=== PATIENT | male | born 1960 | race Caucasian/White ===

== ENCOUNTER 2020-08-17 08:56 | Outpatient (CLI) | payer BC | END 2020-08-17 08:57 | disposition home or self-care (01) | LOC: CSHWCC 08:56 | PROVIDERS: ATTEND Nurse Practitioner Family | DX: L89.153 Pressure ulcer of sacral region, stage 3 (principal); I10 Essential (primary) hypertension; G89.11 Acute pain due to trauma; Z74.01 Bed confinement status; Z86.16 Personal history of COVID-19 | CPT/HCPCS: 11042; 99203; G0463 ==

== ENCOUNTER 2020-08-20 10:49 | Outpatient (CLI) | payer BC | END 2020-08-20 10:50 | disposition home or self-care (01) | LOC: CSHWCC 10:49 | PROVIDERS: ATTEND Nurse Practitioner Family | DX: L89.153 Pressure ulcer of sacral region, stage 3 (principal); G89.11 Acute pain due to trauma; I10 Essential (primary) hypertension; Z74.01 Bed confinement status; Z86.16 Personal history of COVID-19 | CPT/HCPCS: 97605 ==

== ENCOUNTER 2020-08-24 09:13 | Outpatient (CLI) | payer BC | END 2020-08-24 09:14 | disposition home or self-care (01) | LOC: CSHWCC 09:13 | PROVIDERS: ATTEND Nurse Practitioner Family | DX: L89.153 Pressure ulcer of sacral region, stage 3 (principal); G89.11 Acute pain due to trauma; I10 Essential (primary) hypertension; Z74.01 Bed confinement status; Z86.16 Personal history of COVID-19 | CPT/HCPCS: 97605 ==

== ENCOUNTER 2020-08-27 13:12 | Outpatient (CLI) | payer BC | END 2020-08-27 13:13 | disposition home or self-care (01) | LOC: CSHWCC 13:12 | PROVIDERS: ATTEND Nurse Practitioner Family | DX: L89.153 Pressure ulcer of sacral region, stage 3 (principal); G89.11 Acute pain due to trauma; I10 Essential (primary) hypertension; Z74.01 Bed confinement status; Z86.16 Personal history of COVID-19 | CPT/HCPCS: 97605 ==

== ENCOUNTER 2020-08-31 10:24 | Outpatient (CLI) | payer BC | END 2020-08-31 10:25 | disposition home or self-care (01) | LOC: CSHWCC 10:24 | PROVIDERS: ATTEND Nurse Practitioner Family | DX: L89.153 Pressure ulcer of sacral region, stage 3 (principal); G89.11 Acute pain due to trauma; I10 Essential (primary) hypertension; Z74.01 Bed confinement status; Z86.16 Personal history of COVID-19 | CPT/HCPCS: 97605 ==

== ENCOUNTER 2020-09-03 10:15 | Outpatient (CLI) | payer BC | END 2020-09-03 10:16 | disposition home or self-care (01) | LOC: CSHWCC 10:15 | PROVIDERS: ATTEND Nurse Practitioner Family | DX: L89.153 Pressure ulcer of sacral region, stage 3 (principal); G89.11 Acute pain due to trauma; I10 Essential (primary) hypertension; Z74.01 Bed confinement status; Z86.16 Personal history of COVID-19 | CPT/HCPCS: 97605 ==

== ENCOUNTER 2020-09-07 12:37 | Outpatient (CLI) | payer BC | END 2020-09-07 12:38 | disposition home or self-care (01) | LOC: CSHWCC 12:37 | PROVIDERS: ATTEND Nurse Practitioner Family | DX: L89.153 Pressure ulcer of sacral region, stage 3 (principal); G89.11 Acute pain due to trauma; I10 Essential (primary) hypertension; Z74.01 Bed confinement status; Z86.16 Personal history of COVID-19 | CPT/HCPCS: 11042; 87070; 87077; 87186; 87205; 97605 ==

== ENCOUNTER 2020-09-10 12:54 | Outpatient (CLI) | payer BC | END 2020-09-10 12:55 | disposition home or self-care (01) | LOC: CSHWCC 12:54 | PROVIDERS: ATTEND Nurse Practitioner Family | DX: L89.153 Pressure ulcer of sacral region, stage 3 (principal); G89.11 Acute pain due to trauma; I10 Essential (primary) hypertension; Z74.01 Bed confinement status; Z86.16 Personal history of COVID-19 | CPT/HCPCS: 97605 ==

== ENCOUNTER 2020-09-10 15:32 | Outpatient (CLI) | payer BC | END 2020-09-10 15:33 | disposition home or self-care (01) | LOC: CSHRAD 15:32 | PROVIDERS: ATTEND Nurse Practitioner Family | DX: L89.153 Pressure ulcer of sacral region, stage 3 (principal) | CPT/HCPCS: 72190 ==

== ENCOUNTER 2020-09-14 12:27 | Outpatient (CLI) | payer BC | END 2020-09-14 12:28 | disposition home or self-care (01) | LOC: CSHWCC 12:27 | PROVIDERS: ATTEND Nurse Practitioner Family | DX: L89.153 Pressure ulcer of sacral region, stage 3 (principal); G89.11 Acute pain due to trauma; I10 Essential (primary) hypertension; Z74.01 Bed confinement status; Z86.16 Personal history of COVID-19 | CPT/HCPCS: 97605 ==

== ENCOUNTER 2020-09-17 11:13 | Outpatient (CLI) | payer BC | END 2020-09-17 11:14 | disposition home or self-care (01) | LOC: CSHWCC 11:13 | PROVIDERS: ATTEND Nurse Practitioner Family | DX: L89.153 Pressure ulcer of sacral region, stage 3 (principal); G89.11 Acute pain due to trauma; I10 Essential (primary) hypertension; Z74.01 Bed confinement status; Z86.16 Personal history of COVID-19 | CPT/HCPCS: 97605 ==

== ENCOUNTER 2020-09-21 11:54 | Outpatient (CLI) | payer BC | END 2020-09-21 11:55 | disposition home or self-care (01) | LOC: CSHWCC 11:54 | PROVIDERS: ATTEND Nurse Practitioner Family | DX: L89.153 Pressure ulcer of sacral region, stage 3 (principal); G89.11 Acute pain due to trauma; I10 Essential (primary) hypertension; Z74.01 Bed confinement status; Z86.16 Personal history of COVID-19 | CPT/HCPCS: 97605 ==

== ENCOUNTER 2020-09-24 08:49 | Outpatient (CLI) | payer BC | END 2020-09-24 08:50 | disposition home or self-care (01) | LOC: CSHWCC 08:49 | PROVIDERS: ATTEND Nurse Practitioner Family | DX: L89.153 Pressure ulcer of sacral region, stage 3 (principal); G89.11 Acute pain due to trauma; I10 Essential (primary) hypertension; Z74.01 Bed confinement status; Z86.16 Personal history of COVID-19 | CPT/HCPCS: 97605 ==

== ENCOUNTER 2020-09-28 15:31 | Outpatient (CLI) | payer BC | END 2020-09-28 15:32 | disposition home or self-care (01) | LOC: CSHWCC 15:31 | PROVIDERS: ATTEND Nurse Practitioner Family | DX: L89.153 Pressure ulcer of sacral region, stage 3 (principal); G89.11 Acute pain due to trauma; I10 Essential (primary) hypertension; Z74.01 Bed confinement status; Z86.16 Personal history of COVID-19 | CPT/HCPCS: 97605 ==

== ENCOUNTER 2020-10-13 11:31 | Outpatient (CLI) | payer BC | END 2020-10-13 11:32 | disposition home or self-care (01) | LOC: CSHWCC 11:31 | PROVIDERS: ATTEND Nurse Practitioner Family | DX: L89.153 Pressure ulcer of sacral region, stage 3 (principal); G89.11 Acute pain due to trauma; Z74.01 Bed confinement status; Z86.16 Personal history of COVID-19 | CPT/HCPCS: 97605 ==

== ENCOUNTER 2020-10-23 11:07 | Outpatient (CLI) | payer BC | END 2020-10-23 11:08 | disposition home or self-care (01) | LOC: CSHWCC 11:07 | PROVIDERS: ATTEND Nurse Practitioner Family | DX: L89.153 Pressure ulcer of sacral region, stage 3 (principal); G89.11 Acute pain due to trauma; I10 Essential (primary) hypertension; Z74.01 Bed confinement status; Z86.16 Personal history of COVID-19 ==

== ENCOUNTER 2022-05-02 10:28 | Outpatient (CLI) | payer BC | END 2022-05-02 10:29 | disposition home or self-care (01) | LOC: CSHCP 10:28 | PROVIDERS: ATTEND Internal Medicine Critical Care Medicine | DX: U09.9 Post COVID-19 condition, unspecified (principal); J98.4 Other disorders of lung | CPT/HCPCS: 94010; 94726; 94729; 94760 ==